=== PATIENT | female | born 1975 | race Caucasian/White ===

== ENCOUNTER 2016-08-11 10:13 | Day surgery (SDC) | payer OTHER ==
[2016-07-21 10:42] VITALS: BMI 36.0
--- NOTE | 2016-07-21 11:21 | PAT Medication Instructions ---
Service Date Jul 21, 2016. Current Home Medication List Albuterol (Ventolin Hfa), 2-3 PUFFS INH Q4HR PRN Cetirizine (Zyrtec), 10 MG PO DAILY PRN for ALLERGY Ibuprofen Tab (Motrin), 1,600 MG PO DAILY PRN for Pain Mometasone Furoate-Formoterol (Dulera 200/5 Mcg), 2 PUFF INH AMHS Tramadol (Ultram), 1-2 TAB PO Q4H PRN for Pain [Magnesium Joselo Zinc], 1-3 TAB PO PRN Medication Instructions For Your Scheduled Surgery Ibuprofen Tab (Motrin), 1,600 MG PO DAILY PRN for Pain (takes only occasionally) - Hold the following medications 2 weeks prior to surgery: Magnesium Joselo Zinc 1-3 TAB PO PRN - Hold the following medications the morning of surgery: Cetirizine (Zyrtec), 10 MG PO DAILY PRN for ALLERGY - Take the following medications the morning of surgery with a sip of water: Tramadol (Ultram), 1-2 TAB PO Q4H PRN for Pain (can take up to four hours prior to surgery if needed) Mometasone Furoate-Formoterol (Dulera 200/5 Mcg), 2 PUFF INH AMHS Albuterol (Ventolin Hfa), 2-3 PUFFS INH Q4HR PRN (bring with you to hospital on day of surgery) - Take the following medications as scheduled the night before surgery: Tramadol (Ultram), 1-2 TAB PO Q4H PRN for Pain (if needed) Mometasone Furoate-Formoterol (Dulera 200/5 Mcg), 2 PUFF INH AMHS Cetirizine (Zyrtec), 10 MG PO DAILY PRN for ALLERGY (if needed) Albuterol (Ventolin Hfa), 2-3 PUFFS INH Q4HR PRN (if needed) If you have any questions please call us at [phone] or [phone] ( Rachel) or [phone]
[2016-07-21 11:42] LABS: BASO % 0.5 %; BASO ABS # 0.03 K/uL (0-0.2); COMPLETE YES; EOS % 3.8 %; HEMATOCRIT 36.4 % (37-47); IG% 0.2 %; LYMPH % 23.6 %; LYMPH ABS # 1.29 K/uL (1.2-3.4); MEAN CELL VOLUME 90.5 fL (80-100); MEAN CORPUSCULAR HEMOGLOBIN 30.6 pg (25-34); MEAN CORPUSCULAR HGB CONC 33.8 g/dl (32-36); MEAN PLATELET VOLUME 10.5 fL (7.4-10.4); MONO % 5.5 %; NEUT % 66.4 %; PLATELET COUNT 235 K/uL (130-400); RED BLOOD COUNT 4.02 M/uL (4.2-5.4); WHITE BLOOD COUNT 5.46 K/uL (4.8-10.8)
[2016-07-21 12:01] LABS: CALCIUM 8.3 mg/dl (8.5-10.1); CREATININE 0.69 mg/dl (0.60-1.20); POTASSIUM 3.9 mmol/L (3.5-5.1)
[~2016-08-11] VITALS: Ht 170.2 cm; Wt 106.6 kg
[~2016-08-11 10:13] MED LIST: ACETAMINOPHEN 1000 MG/100 ML IV IV ONE; ALBUAER2 INH; CETI10TA84 PO; IBUP-1451 PO; LACTATED RINGER'S 1000ML 1,000 ML IV SCH; MOME200A INH; TRAM-10 PO; [UNRECOGNIZED DRUG - OTHER] PO
[2016-08-11 10:43] VITALS: BP 115/71; PULSE 71; TEMP 36.7; O2SAT 99; Ht 170.2 cm; Wt 106.6 kg
[2016-08-11] MEDS ORDERED: SUCCINYLCHOLINE CHLORIDE 20 MG/ML 10 ML VIAL IV ONE (10:55)
[2016-08-11] MEDS ORDERED: FENTANYL CITRATE INJ 50 MCG/1 ML 2 ML VIAL ONE ×2 (10:55→13:16)
[2016-08-11] MEDS ORDERED: PHENYLEPHRINE HCL INJ 10 MG/ML VIAL ONE (10:55)
[2016-08-11] MEDS ORDERED: LIDOCAINE HCL 2% 2 ML VIAL (20MG/ML) ONE (10:55)
[2016-08-11] MEDS ORDERED: MIDAZOLAM HCL 1 MG/ML 2ML VIAL ONE (10:55)
[2016-08-11] MEDS ORDERED: ONDANSETRON INJ 2 MG/ML 2 ML VIAL ONE ×2 (10:55)
[2016-08-11] MEDS ORDERED: DEXAMETHASONE SOD INJ 4 MG/ML VIAL ONE (10:55)
[2016-08-11] MEDS ORDERED: ROCURONIUM BROMIDE 10 MG/ML 5 ML VIAL ONE (10:55)
[2016-08-11] MEDS ORDERED: EpHEDrine SULFATE INJ 50 MG/ML AMP ONE (10:55)
[2016-08-11] MEDS ORDERED: GLYCOPYRROLATE INJ 0.2 MG/ML VIAL ONE (10:55)
[2016-08-11] MEDS ORDERED: NEOSTIGMINE METHYLSULFATE 5 MG/5 ML SYR ONE (10:55)
[2016-08-11] MEDS ORDERED: PROPOFOL IV EMULSION 10 MG/ML 20 ML VIAL IV ONE ×2 (10:55)
--- NOTE | 2016-08-11 12:09 | History & Physical Bridge Note ---
H&P Re-Evaluation Bridge Note: I have examined the patient, reviewed the History & Physical and in the interval since the performance of the History & Physical I have noted the following changes of clinical significance: No changes noted
[2016-08-11] MEDS ORDERED: BUPIVACAINE 0.5 % 5 MG/1 ML MPF 30ML VIAL ONE (12:17)
[2016-08-11] MEDS ORDERED: ONDANSETRON INJ 2 MG/ML 2 ML VIAL IV PRN ×2 (12:45→13:30)
[2016-08-11] MEDS ORDERED: PROMETHAZINE HCL INJ 6.25 MG in SODIUM CHLORIDE 0.9% 50ML 50 ML IV PRN (12:45)
[2016-08-11] MEDS ORDERED: HYDROmorphone INJ 1 MG/ML SYR IV PRN (12:45)
[2016-08-11] MEDS ORDERED: EpHEDrine SULFATE INJ 50 MG/ML AMP IV PRN (12:45)
[2016-08-11] MEDS ORDERED: ATROPINE SULFATE 0.1 MG/ML 5ML SYR IV PRN (12:45)
[2016-08-11] MEDS ORDERED: SODIUM CHLORIDE 0.9% 1000ML 1,000 ML IV SCH (13:29)
[2016-08-11] MEDS ORDERED: IBUPROFEN 600 MG TAB PO PRN (13:30)
[2016-08-11] MEDS ORDERED: KETOROLAC TROMETHAMINE 30 MG/ML VIAL IV. PRN (13:30)
[2016-08-11] MEDS ORDERED: PROMETHAZINE HCL INJ 25 MG in SODIUM CHLORIDE 0.9% 50ML 50 ML IV PRN (13:30)
--- NOTE | 2016-08-11 13:32 | [facility] Post Operative Brief Note ---
Immediate Operative Summary Operative Date Aug 11, 2016. Pre-Operative Diagnosis Pelvic pain, menorrhagia, wishes IUD Post-Operative Diagnosis same Procedure(s) Performed Insertion of Mirena IUD, laparoscopy Surgeon Carmenza Forming Yardage Control Operator Surgeon(s) Chirag Estimated Blood Loss minimal Findings Normal pelvis Specimens None Drains None Anesthesia General Complication(s) None Disposition Recovery Room / PACU
--- NOTE | 2016-08-11 13:34 | Discharge Instructions ---
Discharge Instructions Admission Reason for Admission: Dysmenorrhea, Endometriosis, Female Pelvic Pain Discharge Discharge Diagnosis / Problem: pelvic pain Discharge Goals Goal(s): Routine recovery after surgery Activity Recommendations Activity Limitations: per Instructions/Follow-up section . Instructions / Follow-Up Instructions / Follow-Up ACTIVITY RECOMMENDATIONS: * Rest the first 2-3 days. You should be back to your normal activity levels by day 3. * No heavy lifting for 2 weeks. * No intercourse, tampons or douching for 1-2 weeks. * You may shower the next day. * Do not drive anytime that you are taking narcotic pain medicines. RETURN TO SCHOOL/WORK: * May return to school or work after 2-3 days. DIET: Nausea may occur in the immediate post-operative period. If so, take clear liquids such as tea, bouillon, apple juice until all nausea has subsided, then resume usual diet. MEDICATIONS: Resume previous medications unless instructed otherwise by your surgeon. Ibuprofen 200mg 2-3 tablets every 4-6 hours as needed -- OR -- Aleve 2 tablets every 8-12 hours as needed for post-operative discomfort Medications are over the counter. Tylenol may be used if above medications are contraindicated or not preferred. Medication should be taken with food or milk. Do not take on an empty stomach. SPECIAL CARE INSTRUCTIONS: * Check temperature twice daily for one week. report any elevation over 101 degrees. * You may experience some vagina spotting and/or bleeding. This is normal for 1 -2 weeks and should not be heavier than a normal period. If it is unusual in amount, call your physician. * Post-operative discomfort may consist of a sore throat, a "bloated" feeling and pain in the shoulders. these are normal symptoms, which usually only last for 2-3 days. * Remove band-aids tomorrow and shower. There is no need to replace band-aids unless there is drainage or discomfort. FOLLOW UP VISIT: Call your doctor's office for a post-operative 2 week visit if not already scheduled. Current Hospital Diet Patient's current hospital diet: Discharge Diet Recommended Diet: Regular Diet Procedures Procedures Performed: Insertion of Mirena IUD, laparoscopy Pending Studies Studies pending at discharge: no Medical Emergencies . Who to Call and When: Medical Emergencies: If at any time you feel your situation is an emergency, please call 911 immediately. . Non-Emergent Contact Non-Emergency issues call your: Primary Care Provider . . "Provider Documentation" section prepared by Noel Herr. VTE Core Measure Inpt VTE Proph given/why not?: Keanu Phillips, SCD's
[2016-08-11] MEDS: FENTANYL CITRATE INJ 50 MCG/1 ML 2 ML VIAL IV PRN ×3 (13:45→14:00)
--- NOTE | 2016-08-11 14:29 | Anesthesiology Progress Note ---
Anesthesia Post Op Note Date & Time Aug 11, 2016 at 14:30 Vital Signs Pain Intensity: 2 Vital Signs Past 12 Hours Date Time Temp Pulse Resp B/P Pulse Ox O2 Delivery O2 Flow Rate FiO2 08/11/16 14:16 36.8 08/11/16 14:14 122/81 08/11/16 14:11 61 16 93 08/11/16 14:11 63 16 08/11/16 14:09 130/77 08/11/16 14:06 62 16 94 08/11/16 14:06 62 16 08/11/16 14:04 127/83 08/11/16 14:01 65 16 08/11/16 14:01 65 16 95 08/11/16 13:59 129/82 08/11/16 13:56 58 12 08/11/16 13:56 58 12 96 08/11/16 13:55 Nasal Cannula 3 08/11/16 13:54 136/86 08/11/16 13:51 59 13 94 08/11/16 13:51 59 13 08/11/16 13:49 140/96 08/11/16 13:46 65 18 08/11/16 13:46 64 18 97 08/11/16 13:44 149/102 08/11/16 13:41 80 20 156/98 98 08/11/16 13:41 78 08/11/16 13:36 36.2 78 16 156/98 98 Mask 10 08/11/16 10:43 36.7 71 20 115/71 99 Room Air Notes Mental Status: alert / awake / arousable, participated in evaluation Pt Amnestic to Procedure: Yes Nausea / Vomiting: adequately controlled Pain: adequately controlled Airway Patency, RR, SpO2: stable & adequate BP & HR: stable & adequate Hydration State: stable & adequate Anesthetic Complications: no major complications apparent
[2016-08-11 14:30] VITALS: BP 121/70; PULSE 60; TEMP 36.8; O2SAT 93
[2016-08-11 15:00] VITALS: BP 106/70; PULSE 63; TEMP 36.7; O2SAT 95
[2016-08-11] MEDS ORDERED: TRAM-453 PO (15:17)
[2016-08-11 15:25] VITALS: BP 102/66; PULSE 62; TEMP 36.7; O2SAT 95
[2016-08-11] MEDS ORDERED: TRAMADOL HCL 50 MG TAB PO PRN (15:30)
--- NOTE | 2016-08-12 08:53 | OPERATIVE REPORT ---
DATE OF OPERATION: 08/11/2016 PREOPERATIVE DIAGNOSIS: Pelvic pain, menorrhagia, wishes intrauterine device. POSTOPERATIVE DIAGNOSIS: Same. PROCEDURE: Insertion of Mirena IUD, laparoscopy. SURGEON: Dr. Herr. EMERGENCY DISPATCH OPERATOR: Dr. Beard. ESTIMATED BLOOD LOSS: Minimal. FINDINGS: Normal pelvis. SPECIMENS: None. DRAINS: None. ANESTHETIC: General. COMPLICATIONS: None. DISPOSITION: Recovery room. Kacie was given a general anesthetic, prepped and draped in dorsolithotomy position in [facility]. Bladder drained with a Strauss catheter. We grasped the cervix with an Allis clamp and sounded the uterus to 8 cm and Mirena IUD device was then inserted without difficulty and strings cut to 2 cm. At this stage, I then placed a cervical acorn overtop of this to allow manipulation of the uterus. Gloves changed and a subumbilical incision was made with open Razia technique cutting down through subcutaneous fat through the fascia in the midline, splitting the rectus muscles and entering the peritoneal cavity without difficulty. Blunt-tipped Razia trocar then placed. Balloon inflated into the tip and then CO2 gas to insufflate the abdomen. FINDINGS: Upper abdomen normal, no sign of visceral organ injury. After deep Trendelenburg position, we placed one 8 mm port on the left side to allow probe, and anatomy was completely normal. Specifically, the uterus appeared normal. The adnexa appeared normal. The pelvic sidewalls appeared normal. The uterosacrals appeared normal. The cul-de-sac appeared normal. The anterior bladder flap appeared normal. The appendix appeared normal. There was no evidence of scarring, endometriosis or any other PARENT EDUCATOR pathologies. Pictures were taken for documentation. At this stage, we then removed the camera and the probe and gas was allowed to escape. Ports were removed. All injected with 0.5% Marcaine. Fascia closed with 0 Vicryl [id number] sutures, deep subcutaneous fat closed as well with 0 Vicryl. Skin closed with 4-0 subcuticular Monocryl on both incisions and Dermabond. Instruments removed from the cervix and vagina. IUD obviously was left in proper position. At the end of procedure sponge and instrument counts correct. I attest to the content of the Intraoperative Record and any orders documented therein. Any exceptio ns are noted below.
== END 2016-08-11 15:30 | disposition home or self-care (01) ==
LOC: C.ACU 10:13
PROVIDERS: ATTEND Obstetrics & Gynecology
DX: Z30.430 Encounter for insertion of intrauterine contraceptive device (principal); N94.6 Dysmenorrhea, unspecified; N80.9 Endometriosis, unspecified; N92.6 Irregular menstruation, unspecified; M25.50 Pain in unspecified joint; D86.9 Sarcoidosis, unspecified; F17.210 Nicotine dependence, cigarettes, uncomplicated

== ENCOUNTER → 2016-10-09 | Outpatient (CLI) | payer OTHER ==
[~2016-10-09] MED LIST changes: -ACETAMINOPHEN 1000 MG/100 ML IV IV ONE; +DOXY100C2 PO; -LACTATED RINGER'S 1000ML 1,000 ML IV SCH; +PRED50TA PO; +VNTHFA/IN INH
--- NOTE | 2016-10-09 13:19 | DIAGNOSTIC IMAGING REPORT ---
CHEST 2 VIEWS ROUTINE CLINICAL HISTORY: Night sweats. Sarcoidosis. Asthma. COMPARISON STUDY: Chest radiograph September 18, 2014. FINDINGS: Lung volumes are normal. There is no pneumothorax or pleural effusion. There is no consolidation to suggest pneumonia. Cardiomediastinal silhouette is normal. There is no evidence of pulmonary edema. IMPRESSION: No acute cardiopulmonary findings. Electronically signed by: Jamar Khalil M.D. 10/09/2016 1:18 PM Dictated Date/Time: 10/09/2016 1:17 PM
== END | disposition home or self-care (01) ==
LOC: C.RAD1850 12:23
PROVIDERS: ATTEND Internal Medicine Pulmonary Disease
DX: J45.909 Unspecified asthma, uncomplicated (principal); R61 Generalized hyperhidrosis; D86.9 Sarcoidosis, unspecified

== ENCOUNTER 2017-02-28 21:13 | Emergency (ER) | payer OTHER ==
[~2017-02-28] VITALS: Ht 170.2 cm; Wt 101.3 kg
[~2017-02-28 21:13] MED LIST changes: -DOXY100C2 PO; -PRED50TA PO; -TRAM-10 PO; -VNTHFA/IN INH
[2017-02-28 21:20] VITALS: TEMP 36.6; Ht 170.2 cm; Wt 101.3 kg
[2017-02-28] MEDS ORDERED: VNTHFA/IN INH (21:40)
[2017-02-28] MEDS ORDERED: ONDANSETRON INJ 2 MG/ML 2 ML VIAL IV STA (21:41)
[2017-02-28] MEDS ORDERED: DEXAMETHASONE SOD INJ 10 MG/ML VIAL IV ONE (21:45)
[2017-02-28] MEDS ORDERED: ALBUT/IPRATROP 3MG/0.5MG NEB 3 ML VIAL INH ONE (21:45)
[2017-02-28 21:57] VITALS: O2SAT 96
[2017-02-28 22:00] LABS: BASO % 0.4 %; BASO ABS # 0.03 K/uL (0-0.2); COMPLETE YES; EOS % 4.1 %; HEMATOCRIT 40.6 % (37-47); IG% 0.3 %; LYMPH % 24.6 %; LYMPH ABS # 1.78 K/uL (1.2-3.4); MEAN CELL VOLUME 92.1 fL (80-100); MEAN CORPUSCULAR HEMOGLOBIN 30.8 pg (25-34); MEAN CORPUSCULAR HGB CONC 33.5 g/dl (32-36); MEAN PLATELET VOLUME 10.3 fL (7.4-10.4); NEUT % 62.6 %; PLATELET COUNT 291 K/uL (130-400); RED BLOOD COUNT 4.41 M/uL (4.2-5.4); WHITE BLOOD COUNT 7.25 K/uL (4.8-10.8)
[2017-02-28 22:03] VITALS: PULSE 66; O2SAT 97
[2017-02-28 22:17] LABS: BUN/CREATININE RATIO 13.1 (10-20); CALCIUM 9.2 mg/dl (8.5-10.1); CREATININE 0.64 mg/dl (0.60-1.20); POTASSIUM 3.6 mmol/L (3.5-5.1)
[2017-02-28] MEDS ORDERED: AZITHROMYCIN 250 MG TAB PO STA (23:37)
--- NOTE | 2017-02-28 23:38 | EMERGENCY ROOM VISIT NOTE ---
History First contact with patient: 21:27 Chief Complaint: RESPIRATORY PROBLEMS Stated Complaint: BREATHING Nursing Triage Summary: thursday with sore throat and thursday with breathing and cough went to PCP and was told it was viral. breathing and coughing worse. cough and chest tightness History of Present Illness The patient is a 41 year old female who presents to the Emergency Room with complaints of cough, congestion, wheezing with fever and chills for the past several days. Patient has sarcoidosis. No recent steroids. Patient went to the family care doctor and was told it was a cold. No chest x-ray. Patient denies chest pain, abdominal pain, neck stiffness, headache, leg pain or swelling. Review of Systems See HPI for pertinent positives & negatives. A total of 10 systems reviewed and were otherwise negative. Past Medical/Surgical History Medical Problems: (1) Acute Bronchitis (2) Anxiety State Nos (3) Bronchitis (4) Depressive Disorder Nec (5) Other Diseases Of Lung, Nec (6) Personal History, Pneumonia (Recurrent) (7) Respiratory Abnorm Nec (8) Sarcoid (9) Shortness Of Breath Family History Cancer Diabetes mellitus Heart disease Hypertension Lung disease Social History Smoking Status: Current Every Day Smoker Alcohol Use: occasionally Marital Status: Housing Status: lives with family Occupation Status: unemployed Current/Historical Medications Scheduled Mometasone Furoate-Formoterol (Dulera 200/5 Mcg), 2 PUFF INH AMHS Scheduled PRN Albuterol Hfa (Ventolin Hfa), 2-3 PUFFS INH Q4H PRN for SOB/Wheezing Ibuprofen Tab (Motrin), 1,600 MG PO DAILY PRN for Pain Physical Exam Vital Signs Date Time Temp Pulse Resp B/P (MAP) Pulse Ox O2 Delivery O2 Flow Rate FiO2 02/28/17 23:16 78 20 148/93 99 Room Air 02/28/17 22:13 96 Room Air 02/28/17 22:12 59 20 146/100 100 Room Air 02/28/17 22:03 66 20 97 Room Air 02/28/17 21:57 96 Room Air 02/28/17 21:20 36.6 77 20 136/88 93 Room Air Physical Exam PHYSICAL EXAM: Vital Signs: Reviewed Nurse's notes. Oxygen saturation was 93% on room air. GENERAL: Pleasant female, Alert, oriented and coherent. The patient is able to speak in complete sentences. NECK: Supple, non-tender. CHEST : Symmetrical expansion. no retractions no accessory muscle use. HEART: Regular rate and normal heart sounds, no murmur, gallop or rub. LUNGS: Breath sounds equal but significantly diminished in intensity on both sides. Bilateral wheezes heard but no rales or pleuritic rub. SKIN: The skin was without rashes, erythema, edema, or bruising. There is no tenting of the skin. Capillary reflex less than 2 seconds. HEAD: Normocephalic atraumatic. EARS: External auditory canals clear, tympanic membranes pearly villalobos without erythema or effusion bilaterally. EYES: Pupils equal round and reactive to light and accommodation. Conjunctivae without injection, sclerae without icterus. Extraocular movements intact. NOSE: Patent, turbinates without inflammation or discharge. No sinus tenderness. MOUTH: Mucous membranes moist. Pharynx without erythema or exudate. Uvula midline. Airway patent. Tongue does not deviate. ABDOMEN: Positive bowel sounds x 4. Normal tympanic percussion. Soft, nontender, without masses or organomegaly. He sign negative. No guarding or rebound tenderness. MUSCULOSKELETAL: No muscle atrophy, erythema, or edema noted. NEURO: Patient was alert and oriented to person place and time. Normal sensation to light and sharp touch. No focal neurological deficits. Medical Decision & Procedures Laboratory Results 02/28/17 21:50 Red Blood Count 4.41, Mean Corpuscular Volume 92.1, Mean Corpuscular Hemoglobin 30.8, Mean Corpuscular Hemoglobin Concent 33.5, Mean Platelet Volume 10.3, Neutrophils (%) (Auto) 62.6, Lymphocytes (%) (Auto) 24.6, Monocytes (%) (Auto) 8.0, Eosinophils (%) (Auto) 4.1, Basophils (%) (Auto) 0.4, Neutrophils # (Auto) 4.54, Lymphocytes # (Auto) 1.78, Monocytes # (Auto) 0.58, Eosinophils # (Auto) 0.30, Basophils # (Auto) 0.03 02/28/17 21:50 Test 02/28/17 21:50 White Blood Count 7.25 K/uL (4.8-10.8) Red Blood Count 4.41 M/uL (4.2-5.4) Hemoglobin 13.6 g/dL (12.0-16.0) Hematocrit 40.6 % (37-47) Mean Corpuscular Volume 92.1 fL (80-100) Mean Corpuscular Hemoglobin 30.8 pg (25-34) Mean Corpuscular Hemoglobin Concent 33.5 g/dl (32-36) Platelet Count 291 K/uL (130-400) Mean Platelet Volume 10.3 fL (7.4-10.4) Neutrophils (%) (Auto) 62.6 % Lymphocytes (%) (Auto) 24.6 % Monocytes (%) (Auto) 8.0 % Eosinophils (%) (Auto) 4.1 % Basophils (%) (Auto) 0.4 % Neutrophils # (Auto) 4.54 K/uL (1.4-6.5) Lymphocytes # (Auto) 1.78 K/uL (1.2-3.4) Monocytes # (Auto) 0.58 K/uL (0.11-0.59) Eosinophils # (Auto) 0.30 K/uL (0-0.5) Basophils # (Auto) 0.03 K/uL (0-0.2) RDW Standard Deviation 40.9 fL (36.4-46.3) RDW Coefficient of Variation 12.1 % (11.5-14.5) Immature Granulocyte % (Auto) 0.3 % Immature Granulocyte # (Auto) 0.02 K/uL (0.00-0.02) Anion Gap 6.0 mmol/L (3-11) Est Creatinine Clear Calc Drug Dose 144.4 ml/min Estimated GFR () 130.3 Estimated GFR (Non- 112.4 BUN/Creatinine Ratio 13.1 (10-20) Calcium Level 9.2 mg/dl (8.5-10.1) Medications Administered Medications (Trade) Dose Ordered Sig/Waldemar Route Start Time Stop Time Status Last Admin Dose Admin Albuterol/ Ipratropium (Duoneb) 12 ml ONE ONCE INH 02/28/17 21:45 02/28/17 21:46 DC 02/28/17 22:00 12 ML Dexamethasone Sodium Phosphate (Decadron Inj) 10 mg NOW ONCE IV 02/28/17 21:45 02/28/17 21:46 DC 02/28/17 22:05 10 MG Ondansetron HCl (Zofran Inj) 4 mg NOW STAT IV 02/28/17 21:41 02/28/17 21:42 DC 02/28/17 22:05 4 MG ED Course Prior records/ancillary studies reviewed. Triage Nursing notes reviewed. The patient's history was concerning for respiratory difficulties. Differential diagnosis: Etiologies such as sarcoid exacerbation, infections, reactive airway disease, pneumonia, pneumothorax, COPD, CHF, cardiac ischemia, pulmonary embolism, musculoskeletal, gastrointestinal, as well as others were entertained. Physical examination: As above. ER treatment provided: Nebulizer, steroids On reassessment the patient felt better. Diagnostic interpretation by me: The labs revealed no leukocytosis. No worrisome or joint abnormality Imaging studies: Chest x-ray developing right lower lobe pneumonia per my interpretation This appears to be consistent with PNA with wheezing most likely from her sarcoid, from a viral infection. Patient was neurovascularly and neurologically intact. She felt much better after being medicated as above. She is advised to take medications as directed and to follow-up family care in a few days or here in the ER sooner for chest pain, difficulty breathing, high fevers, worsening signs or symptoms or as needed. By the evaluation outlined above emergent etiologies such as CHF, cardiac ischemia, pulmonary embolism, pneumothorax, musculoskeletal, serious bacterial infections, as well as others were deemed relatively unlikely. The pt informed about the findings as listed above. All questions were answered and pleased with the treatment. Return instructions were outlined and the patient was discharged in stable condition. Outpatient prescription management: Prednisone, doxy Referral: The patient was referred back to their primary care physician for follow-up in 2 to 3 days for a recheck of the current condition. Case reviewed with my attending Medical Decision As above Medication Reconcilliation Current Medication List: was personally reviewed by me Blood Pressure Screening Patient's blood pressure: Normal blood pressure Impression Primary Impression: Pneumonia involving right lung Departure Information Dispostion Home / Self-Care Condition GOOD Referrals Yasmine Camejo D.O. (PCP) Patient Instructions My [facility] Additional Instructions Albuterol Inhaler: Take 2 puffs four times daily for five days, then as needed. Prednisone 50mg: Once daily until the prescription is finished. It is best to take this earlier in the day as some patients note occasional difficulty falling asleep when taken in the late evening. Doxycycline 100mg: Take one pill twice daily for seven days for your infection. Take with food, but avoid dairy. Avoid prolonged sun exposure since this medication makes you temporarily more susceptible to sunburns. All antibiotics can cause diarrhea. If this occurs and you feel worse or it does not resolve in 1-2 days follow up with your doctor or return to the Emergency Department as this could be signs of serious underlying problems. Any medication can cause an allergic reaction, stop the pills immediately and return to the ER for rash, hives, breathing difficulties, or swelling. Acetaminophen(Tylenol) may be used for fever or pain. Use 1000mg every six hours as needed. Avoid using more than 3000mg in a 24 hour period. (AND/OR) Ibuprofen(Motrin, Advil) may be used for fever or pain. Use 600mg every six hours as needed. Take with food. Avoid using more than 2400mg in a 24 hour period. Do not use 2400mg per day for more than three consecutive days without physician direction. Prolonged inappropriate use can lead to stomach upset or ulcers. Rest and drink plenty of fluids. Avoid smoke/smoking, fumes, dust, or any triggers in the past that may have affected your breathing. Continue current medications. Return to the ER for chest pain, difficulty breathing, fevers, vomiting, worsening of your condition, or as needed. Follow up with your primary physician this week for a recheck of your current condition. Problem Qualifiers Primary Impression: Pneumonia involving right lung Pneumonia type: due to unspecified organism Lung location: lower lobe of lung Qualified Codes: J18.1 - Lobar pneumonia, unspecified organism
[2017-02-28] MEDS ORDERED: PRED50TA PO (23:44)
[2017-02-28] MEDS ORDERED: DOXY100C2 PO (23:44)
[2017-02-28] MEDS ORDERED: DOXYCYCLINE HYCLATE 100 MG CAP PO ONE (23:45)
[2017-03-01 00:07] VITALS: BP 135/78; PULSE 85; O2SAT 94
--- NOTE | 2017-03-01 05:45 | DIAGNOSTIC IMAGING REPORT ---
CHEST 2 VIEWS ROUTINE CLINICAL HISTORY: 41 years-old Female presenting with cough/fever. TECHNIQUE: PA and lateral views of the chest were obtained. COMPARISON: 10/09/2016. FINDINGS: Cardiomediastinal silhouette normal. Lungs and pleural spaces clear. Osseous structures normal. Upper abdomen normal. IMPRESSION: 1. No acute cardiopulmonary disease. Electronically signed by: Murphy Holland M.D. 03/01/2017 5:44 AM Dictated Date/Time: 03/01/2017 5:43 AM
== END 2017-03-01 00:08 | disposition home or self-care (01) ==
LOC: C.EDB 21:14
DX: J18.1 Lobar pneumonia, unspecified organism (principal); F41.9 Anxiety disorder, unspecified; F32.9 Major depressive disorder, single episode, unspecified; Z83.3 Family history of diabetes mellitus; Z82.49 Family history of ischemic heart disease and other diseases of the circulatory system; F17.200 Nicotine dependence, unspecified, uncomplicated

== ENCOUNTER 2018-07-08 05:48 | Observation (INO) ==
--- NOTE | 2018-07-06 15:10 | Anesthesiology Consultation ---
Date of Service July 06, 2018 Assessment & Plan Chart Review Chart Review: Acceptable Risk for Surgery and Patient NOT seen in Pre Admission Testing Consults Requested none ASA ASA3 Proposed Anesthesia Anesthesia Type: General History Surgery Operation Date: 07/08/18 07:45 Proposed Procedures p C6-C7 Anterior Cervical Discectomy and Fusion - Cyrus Reyes DO Allergies Allergy/AdvReac Type Severity Reaction Status Date / Time mold Allergy Severe SHORTNESS Verified 02/28/17 21:38 OF BREATH Medications Home Medications Medication Instructions Recorded Confirmed Last Taken Ibuprofen Tab (MOTRIN) 1,600 mg PO DAILY PRN #0 tab 04/04/14 Unknown MOMETASONE FUROATE-FORMOTEROL 2 puff INHALATION AMHS #0 04/04/14 Unknown (DULERA 200/5 MCG) ALBUTEROL HFA (VENTOLIN HFA) 2 - 3 puff INHALATION Q4H PRN #1 02/28/17 Unknown inhaler DOXYCYCLINE HYCLATE (VIBRAMYCIN) 100 mg PO BID 7 Days #14 cap 02/28/17 Unknown Past Medical History Medical History Anemia Anxiety Asthma Hyperlipidemia Obesity Sarcoid Tobacco abuse Past Anesthesia History No Hx of Anesthesia Complications and No Family Hx of Anesthesia Complications Motion Sickness Screening History of Motion Sickness: No Social History Smoking Status: Current every day smoker Exercise / Class Metabolic Activity III < 4 Walking/Shop/Light housework Testing Electrocardiogram Date: 07/02/18 Findings: + pertinent finding (SR w/ frequent PVC's;at 65)
[2018-07-08] MEDS ORDERED: CEFAZOLIN 2000MG 2,000 MG/15 ML SYR IV SCH (06:00)
[2018-07-08] MEDS ORDERED: LR 15ML/HR IV SCH (06:00)
[2018-07-08] MEDS ORDERED: ACETAMINOPHEN 500 MG TAB PO SCH (06:00)
[2018-07-08] MEDS ORDERED: GABAPENTIN 300 MG x 3 PO SCH (06:00)
[2018-07-08] MEDS ORDERED: CeleBREX 200 MG CAP PO SCH (06:00)
[2018-07-08] MEDS ORDERED: ONDANSETRON INJ 2 MG/ML 2 ML VIAL ONE ×2 (06:36→08:52)
[2018-07-08] MEDS ORDERED: ROCURONIUM BROMIDE 10 MG/ML 5 ML VIAL ONE (06:36)
[2018-07-08] MEDS ORDERED: MIDAZOLAM HCL 1 MG/ML 2ML VIAL ONE (06:36)
[2018-07-08] MEDS ORDERED: LIDOCAINE HCL 2% 2 ML VIAL/AMP(20MG/ML) INFIL ONE (06:36)
[2018-07-08] MEDS ORDERED: GLYCOPYRROLATE 0.2 MG/ML VIAL ONE (06:36)
[2018-07-08] MEDS ORDERED: NEOSTIGMINE METHYLSULFATE 1 MG/ML 10ML VIAL ONE (06:36)
[2018-07-08] MEDS ORDERED: DEXAMETHASONE SOD INJ 4 MG/ML VIAL ONE ×3 (06:36→08:14)
[2018-07-08] MEDS ORDERED: fentaNYL citrate 100 MCG/2 ML VIAL ONE (06:36)
[2018-07-08] MEDS ORDERED: PROPOFOL IV EMULSION 10 MG/ML 20 ML VIAL IV ONE (06:36)
[2018-07-08] MEDS ORDERED: HYDROmorphone INJ 2 MG/ML SYR/VIAL ONE (06:37)
[2018-07-08] MEDS ORDERED: ACETAMINOPHEN 1000 MG/100 ML IV IV ONE (06:41)
[2018-07-08] MEDS ORDERED: BACITRACIN INJ 50,000 UNIT VIAL ONE (06:58)
[2018-07-08] MEDS ORDERED: ePHEDrine sulfate 50 MG/ML AMP IV PRN (07:41)
[2018-07-08] MEDS ORDERED: ATROPINE SULFATE 0.1 MG/ML 10ML SYR IV PRN (07:41)
--- NOTE | 2018-07-08 07:41 | History & Physical Bridge Note ---
Date of Service July 08, 2018 History & Physical Bridge Note I have examined the patient, reviewed the History & Physical and in the interval since the performance of the History & Physical I have noted the following changes of clinical significance: no changes noted
--- NOTE | 2018-07-08 07:42 | History & Physical Report ---
Date of Service July 08, 2018 Assessment & Plan (1) Cervical stenosis of spinal canal: Anterior cervical discectomy and fusion C6-7 Present on Admission?: Yes History of Present Illness Chief Complaint: Neck and arm pain Primary Care Provider: Yasmine Camejo DO This is a 42-year-old female presents with chronic persistent neck and arm pain. After failing extensive course of nonoperative care she is here for surgical intervention. Allergies Allergy/AdvReac Type Severity Reaction Status Date / Time mold Allergy Severe SHORTNESS Verified 07/08/18 06:17 OF BREATH No Known Drug Allergies AdvReac Verified 07/08/18 06:17 Home Medications Home Medications Medication Instructions Recorded Confirmed Type albuterol sulfate 2 - 3 puff INHALATION Q6H PRN 07/06/18 07/08/18 History folic acid 1 mg PO DAILY 07/06/18 07/08/18 History ibuprofen 800 mg PO BID PRN 07/06/18 07/08/18 History multivitamin [Multiple Vitamins] 1 tab PO DAILY 07/06/18 07/08/18 History Past Med/Surg History Social History Current Living Situation: Family Other Information That Helps Us Care for You: No Feels Safe at Home: Yes Safety Concerns: Feels Safe At This Time Smoking Status: Current every day smoker Tobacco Type: cigarettes Cigarettes per Day: 10 CIGS/DAILY X 20 YEARS Do You Dip or Chew Tobacco: No Tobacco Cessation Education Requested by Patient: No Hx Alcohol Use: Yes Alcohol type: beer and hard liquor Alcohol Intake Frequency : a few times a week Hx Substance Use: No Beliefs That Will Affect Care: None Preferred Language: Maori Communication Ability: Effective Plywood Patcher Required: No Physical Exam 2 Vital Signs (Past 24 Hours): Last Vital Signs Temp 36.7 C 07/08/18 06:24 Pulse 67 07/08/18 06:24 Resp 20 07/08/18 06:24 BP 134/68 07/08/18 06:24 Pulse Ox 98 07/08/18 06:24 Results & Data Medications Administered Acetaminophen (Tylenol) 1,000 mg PO PREOP JIGNA Stop: 07/08/18 18:00 Last Admin: 07/08/18 06:43 Dose: 1,000 mg Celecoxib (Celebrex) 200 mg PO PREOP JIGNA Stop: 07/08/18 18:00 Last Admin: 07/08/18 06:44 Dose: 200 mg Gabapentin (Neurontin) 900 mg PO PREOP JIGNA Stop: 07/08/18 18:00 Last Admin: 07/08/18 06:44 Dose: 900 mg Lactated Ringer's (Lr) 1,000 mls @ 15 mls/hr IV .Q24H [facility] Stop: 07/09/18 05:59 Last Admin: 07/08/18 06:26 Dose: 15 mls/hr
[2018-07-08] MEDS ORDERED: KETAMINE HCL INJ 50 MG/ML 10 ML VIAL ONE (07:56)
[2018-07-08] MEDS ORDERED: FLOSEAL HEMOSTATIC MATRIX 10ML TOP ONE (08:21)
--- NOTE | 2018-07-08 09:03 | Operative Report ---
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 #2 anterior cervical arthrodesis C6-7. #3 placement of cornerstone cortical allograft filled with DBM 7 mm in height at C6-7. #4 application stewart plate and screws across C6-7. Surgeon Cyrus Reyes DO [employer] None Estimated Blood Loss 50 Findings Consistent with Post-Op Diagnosis Specimens None Description of Procedure Patient was met with preoperatively case discussed all questions addressed. After informed consent obtained patient was taken to the operative suite underwent intubation and placed in supine position Myles table with the head in the [place] head counselor. All bony prominences well-padded eyes inspected to ensure no external pressure placed upon but this point the anterior cervical spine was prepped and draped in normal sterile fashion. The assistance of fluoroscopy identified the C6-7 disc space and a transverse incision was placed on the right anterior aspect of the cervical spine overlying this region. Sharp dissection with the assistance of bipolar elective cautery was performed down to and exposing the anterior cervical spine at C6-7. I verified my position with fluoroscopy. Self-retaining retractor placed. A complete discectomy was then performed out to the uncovertebral joints bilaterally. [place] distracting pins utilized. Removed all disc material posterior annular fibers and longitudinal ligament to remove all disc fragments in the canal. After complete decompression and bilateral foraminotomies in place burred to subcortical bleeding bone and a 7 mm cortical allograft filled with DBM tamped in position. Distraction apparatus was removed and a stewart plate and screws applied with the assistance of fluoroscopy. Incision was then copious irrigated explored to ensure no damage to surrounding structures remaining bleeding. 10 round MAIRA drain inserted. Incision was then closed with 2 Vicryl in a fashion of 4 Monocryl for final skin closure Steri-Strip sterile dressings placed. Patient will continue to PACU in a stable condition. I attest to the content of the Intraoperative Record and any orders documented therein. Any exceptions are noted below.
[2018-07-08] MEDS: HYDROmorphone INJ 2 MG/ML SYR/VIAL IV PRN ×4 (09:15→09:30)
--- NOTE | 2018-07-08 09:25 | Fluoroscopy Report ---
FL cervical 2-3V CLINICAL HISTORY: ACDF C6-7 COMPARISON STUDY: MRI dated 05/21/2018 FLUOROSCOPY TIME: 18.1 seconds. NUMBER OF FLUOROSCOPIC IMAGES: 3 FINDINGS: 3 intraoperative fluoroscopic spot images reveal postsurgical changes of anterior cervical discectomy and fusion at the C6-7 level. IMPRESSION: Postsurgical changes of anterior cervical discectomy and fusion at the C6-7 level. Electronically signed by: Livan Cuellar M.D. 07/08/2018 9:23 AM
[2018-07-08] MEDS ORDERED: HYDROmorphone INJ 1 MG/ML SYRINGE ONE (09:30)
[2018-07-08] MEDS: HYDROmorphone INJ 0.5 MG/0.5 ML SYR IV PRN ×2 (09:35→09:40)
[2018-07-08] MEDS ORDERED: DO NOT ADMINISTER PNEUMOCOCCAL VACCINE PRN (10:49)
[2018-07-08] MEDS ORDERED: ONDANSETRON INJ 2 MG/ML 2 ML VIAL IV PRN (10:49)
[2018-07-08] MEDS ORDERED: DO NOT ADMINISTER FLU VACCINE PRN (10:49)
[2018-07-08] MEDS ORDERED: RACEPINEPHRINE 2.25% NEBU SOLN 0.5 ML VIAL INH PRN (10:49)
[2018-07-08] MEDS ORDERED: IBUPROFEN 800 MG TAB PO PRN (10:49)
[2018-07-08] MEDS ORDERED: DiphenhydrAMINE HCL 50 MG/ML VIAL IV PRN (10:49)
[2018-07-08] MEDS ORDERED: ACETAMINOPHEN 1,000 MG/100 ML VIAL IV PRN (10:49)
[2018-07-08] MEDS ORDERED: LORazepam 0.5 MG TAB PO PRN (10:49)
[2018-07-08] MEDS ORDERED: MAGNESIUM HYDROXIDE SUSP 30 ML UDC PO PRN (10:49)
[2018-07-08] MEDS ORDERED: LORazepam 0.5 MG/1 ML VIAL IV PRN (10:49)
[2018-07-08] MEDS ORDERED: DEXAMETHASONE SOD PHOSPHATE 8 MG in SYRINGE 0 ML IV PRN (10:49)
[2018-07-08] MEDS ORDERED: HYDROmorphone INJ 0.5 MG/0.5 ML SYR IV PRN (10:49)
[2018-07-08] MEDS ORDERED: NALOXONE HCL 0.4 MG/1 ML VIAL/CARP IV PRN (10:49)
[2018-07-08] MEDS: LACTATED RINGER'S 1,000 ML IV SCH ×2 (11:23→23:13)
[2018-07-08] MEDS ORDERED: SCOPOLAMINE 1.5 MG TDSY TD SCH (11:30)
[2018-07-08] MEDS: OXYCODONE HCL IR 5 MG TAB (IMMEDIATE RELEASE) PO PRN ×3 (12:23→21:48)
--- NOTE | 2018-07-08 15:16 | Anesthesiology Progress Note ---
Date of Service July 08, 2018 Anesthesia Post Procedure Vital Signs Vital Signs: Temp Pulse Pulse Pulse Resp BP Pulse Ox 07/08/18 13:46 36.3 C L 67 15 106/70 99 07/08/18 12:53 59 L 16 109/73 92 07/08/18 11:46 36.4 C L 54 L 18 107/71 94 07/08/18 11:35 65 16 100 07/08/18 11:15 36.5 C 56 L 17 105/64 99 07/08/18 10:49 36.6 C 56 L 17 116/75 100 07/08/18 10:20 52 L 12 100/61 94 07/08/18 10:10 56 L 18 101/51 L 98 07/08/18 10:00 51 L 18 104/61 99 07/08/18 09:50 36.1 C L 51 L 18 108/65 98 07/08/18 09:40 51 L 18 120/66 98 07/08/18 09:30 54 L 18 130/88 100 07/08/18 09:20 67 18 125/85 99 07/08/18 09:14 36.2 C L 81 18 135/73 97 07/08/18 06:24 36.7 C 67 20 134/68 98 Pulse Ox 07/08/18 13:46 07/08/18 12:53 07/08/18 11:46 07/08/18 11:35 07/08/18 11:15 07/08/18 10:49 100 07/08/18 10:20 07/08/18 10:10 07/08/18 10:00 07/08/18 09:50 07/08/18 09:40 07/08/18 09:30 07/08/18 09:20 07/08/18 09:14 07/08/18 06:24 Pain Intensity Bilateral Shoulder: Pain Intensity: 3 Notes Mental Status: alert / awake / arousable Patient Amnestic to Procedure: Yes Nausea / Vomiting: adequately controlled Pain: adequately controlled Airway Patency, RR, SpO2: stable & adequate BP & HR: stable & adequate Hydration State: stable & adequate Anesthetic Complications: no major complications apparent and Pt Satisfied with anesthetic care
[2018-07-08] MEDS: CHECK SCOPOLAMINE PATCH PLACEMENT SCH ×2 (16:05→23:45)
[2018-07-08] MEDS: CEFAZOLIN 2000MG 2,000 MG/15 ML SYR IV SCH ×2 (16:36→23:13)
[2018-07-08] MEDS: DOCUSATE SODIUM 100 MG CAP PO SCH (21:49)
[2018-07-09] MEDS: OXYCODONE HCL IR 5 MG TAB (IMMEDIATE RELEASE) PO PRN ×2 (02:48→07:55)
[2018-07-09] MEDS ORDERED: Nursing to Pharmacy Communication ONE (05:51)
[2018-07-09] MEDS: CHECK SCOPOLAMINE PATCH PLACEMENT SCH (07:48)
[2018-07-09] MEDS: CEFAZOLIN 2000MG 2,000 MG/15 ML SYR IV SCH (07:55)
--- NOTE | 2018-07-09 08:26 | Anesthesiology Progress Note ---
Date of Service July 09, 2018 Anesthesia Post Procedure Vital Signs Vital Signs: Temp Pulse Pulse Pulse Resp BP Pulse Ox 07/09/18 07:44 36.5 C 56 L 16 98/66 L 98 07/09/18 07:27 58 L 14 97 07/09/18 05:50 36.2 C L 58 L 16 104/67 07/09/18 03:50 36.7 C 60 16 105/68 99 07/09/18 03:25 51 L 16 99 07/09/18 01:55 36.7 C 58 L 14 104/69 98 07/08/18 23:47 36.7 C 57 L 14 108/69 99 07/08/18 23:32 54 L 16 100 07/08/18 21:50 36.5 C 63 16 113/71 98 07/08/18 17:50 36.4 C L 80 18 103/73 97 07/08/18 15:50 36.5 C 72 18 108/66 98 07/08/18 15:12 68 20 99 07/08/18 13:46 36.3 C L 67 15 106/70 99 07/08/18 12:53 59 L 16 109/73 92 07/08/18 11:46 36.4 C L 54 L 18 107/71 94 07/08/18 11:35 65 16 100 07/08/18 11:15 36.5 C 56 L 17 105/64 99 07/08/18 10:49 36.6 C 56 L 17 116/75 100 07/08/18 10:20 52 L 12 100/61 94 07/08/18 10:10 56 L 18 101/51 L 98 07/08/18 10:00 51 L 18 104/61 99 07/08/18 09:50 36.1 C L 51 L 18 108/65 98 07/08/18 09:40 51 L 18 120/66 98 07/08/18 09:30 54 L 18 130/88 100 07/08/18 09:20 67 18 125/85 99 07/08/18 09:14 36.2 C L 81 18 135/73 97 Pulse Ox 07/09/18 07:44 07/09/18 07:27 07/09/18 05:50 07/09/18 03:50 07/09/18 03:25 07/09/18 01:55 07/08/18 23:47 07/08/18 23:32 07/08/18 21:50 07/08/18 17:50 07/08/18 15:50 07/08/18 15:12 07/08/18 13:46 07/08/18 12:53 07/08/18 11:46 07/08/18 11:35 07/08/18 11:15 07/08/18 10:49 100 07/08/18 10:20 07/08/18 10:10 07/08/18 10:00 07/08/18 09:50 07/08/18 09:40 07/08/18 09:30 07/08/18 09:20 07/08/18 09:14 Pain Intensity Bilateral Shoulder: Pain Intensity: 3 Neck: Pain Intensity: 7 Notes Mental Status: alert / awake / arousable and participated in evaluation Patient Amnestic to Procedure: Yes Nausea / Vomiting: adequately controlled Pain: adequately controlled Airway Patency, RR, SpO2: stable & adequate BP & HR: stable & adequate Hydration State: stable & adequate Anesthetic Complications: no major complications apparent and Pt Satisfied with anesthetic care
[2018-07-09] MEDS: DOCUSATE SODIUM 100 MG CAP PO SCH (08:55)
[2018-07-09] MEDS ORDERED: FOLIC ACID 1 MG TAB PO SCH (09:00)
[2018-07-09] MEDS ORDERED: MULTIVITAMIN TAB PO SCH (09:00)
--- NOTE | 2018-07-09 13:54 | Discharge Summary ---
Date of Service July 09, 2018 Admission HPI Per Admitting Provider This is a 42-year-old female presents with chronic persistent neck and arm pain. After failing extensive course of nonoperative care she is here for surgical intervention. Principal Diagnosis Cervical spinal stenosis with myeloradiculopathy Discharge Data Allergies Allergy/AdvReac Type Severity Reaction Status Date / Time mold Allergy Severe SHORTNESS Verified 07/08/18 06:17 OF BREATH No Known Drug Allergies AdvReac Verified 07/08/18 06:17 Procedures Performed Operation Date: 07/08/18 07:45 Actual Procedures p C6-C7 Anterior Cervical Discectomy and Fusion(Not Applicable) - Cyrus Reyes DO Ordered Studies 07/08/18 07:45 FL cervical 2-3V Routine FL fluoroscopy <1hr Routine Hospital Course (1) Cervical stenosis of spinal canal: Patient underwent anterior cervical discectomy and fusion tolerated as well as taken to the orthopedic floor postoperative. Postop day #1 she was swallowing well. No hoarseness. Arm and leg symptoms markedly improved. MAIRA drain decreased probably. Subsequently discharged home. Discharge orders and instructions found in the chart for further review. Total Time Total Time Spent Total Time Spent (In Minutes): Not applicable Discharge Plan Discharge Items Patient Disposition: Home - Self-Care Reason For Visit: CERVICAL SPINAL STENOSIS C6-7 Discharge Diagnosis: cervical stenosis Discharge Goals: Improve disease control Activity: Per 'Additional Instructions' section Non-emergency contact: Primary Care Provider Call non-emergency contact if: you have any medication questions Follow-up/Referrals: Yasmine Camejo DO [Primary Care Provider] - Diet: Regular Addtl Provider Instructions: ACTIVITY RECOMMENDATIONS: SELF CARE INSTRUCTIONS AFTER CERVICAL FUSIONS 1. No smoking. Smoking drastically decreases the chance of a solid fusion. 2. No bending, lifting more than 5 pounds, or twisting (roll like a log when turning in bed). 3. You may shower 3 days after surgery. Thoroughly dry wound. Do not soak in the tub. 4. Cervical collar: Must be worn at all times including sleeping. You may remove the brace only to bath, eat and if you are sitting in a recliner. 5. Please walk as much as you can for exercise. Gradually increase the distance that you walk as your endurance increases. SPECIAL CARE INSTRUCTIONS: VERY IMPORTANT TO READ AND REVIEW A. Do not take any anti-inflammatory medications (i.e. Indocin, Advil, Aspirin, Naprosyn, Aleve, Motrin, etc.) as these may inhibit the chance of a solid fusion. Tylenol is okay to take. B. Your surgical incision has been closed with a cosmetic suture under the skin that will dissolve in about 6 weeks. In 14 days, you can use a pair of clean scissors and cut the suture that is left outside of the skin at the ends of your incision. C. Complications are uncommon, but please contact us if you have any signs or symptoms of: 1. wound infection (fever higher than 102.5 degrees F, redness, separation of wound, drainage, or increasing pain from the incision) 2. blood clots in legs (pain, swelling, redness and warmth in legs) 3. urinary tract infection (fever higher than 102.5 degrees, burning upon urination or increased frequency of urination) 4. nerve problems (inability to walk on your toes or heels, numbness, loss of bowel or bladder control) 5. any other symptoms that concern you. D. Please call the office at if you have any concerns or questions about your operation or recovery. MANAGING PAIN AFTER SPINAL SURGERY 1. Narcotic medication is intended for short-term use and will be provided for surgical pain. Surgical pain usually lasts for a period of 4-6 weeks. Narcotic medication includes Percocet, Vicodin, Darvocet, Tylenol #3 or Lortab. 2. Longer-term pain is more appropriately treated with non-narcotic medication such as Tylenol ES. 3. Muscle spasm is not appropriately treated with narcotics. Muscle relaxers such as Soma, Flexeril or Skelaxin can be used along with Tylenol ES. 4. Remember that we all live with some "aches and pains". This is not unusual or uncommon after an injury or as we get older. 5. We will provide appropriate medication within the normal guidelines of their prescribed use. We will also be very cautious and aware of potential abuse and extended duration of patients' medication needs. 6. Please allow 2-3 days to process refills. Prescriptions will not be mailed but must be picked up at the office. FOLLOW UP VISIT: Keep your scheduled follow-up appointment. Any questions, please call the office at . Prescriptions: New oxycodone 5 mg Tablet 5 mg PO Q4H PRN (Reason: Pain) Qty: 20 RF: 0 Continue multivitamin [Multiple Vitamins] Tablet 1 tab PO DAILY RF: 0 folic acid 1 mg Tablet 1 mg PO DAILY RF: 0 albuterol sulfate 90 mcg/actuation Hfa Aerosol Inhaler 2 - 3 puff INHALATION Q6H PRN (Reason: SOB) RF: 0 Discontinued ibuprofen 800 mg Tablet 800 mg PO BID PRN (Reason: Pain) RF: 0 Stand-Alone Forms: [facility], Opioid Pain Management Discharge Orders: Discharge Order (Routine); Ordered 07/09/18 Ordered By: Cyrus Reyes Admission Data Admit Date/Time: 07/08/18 09:06 Attending Provider: Cyrus Reyes Admit Provider: Cyrus Reyes Primary Care Provider: Yasmine Camejo Service: Surgical Services Other Interventions: Discharge Summary Assessment (RN) Last Done: 07/09/18 11:09 DC Date/Time DO NOT enter until pt leaves facility: 07/09/18 11:33
== END 2018-07-09 11:33 | disposition home or self-care (01) ==
LOC: 3E 05:48 → ASU 05:48

== ENCOUNTER 2021-07-14 10:40 | Inpatient (IN) ==
[2021-07-14] MEDS ORDERED: diphenhydrAMINE 50 MG/ML VIAL IV STA (11:11)
[2021-07-14] MEDS ORDERED: METOCLOPRAMIDE HCL INJ 5 MG/ML 2 ML VIAL IV STA (11:11)
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
[2021-07-14] MEDS ORDERED: SODIUM CHLORIDE 0.9% 1000ML 1,000 ML IV SCH (11:15)
[2021-07-14 12:24] LABS: Basophils # (auto) 0.02 K/uL (0-0.2); Basophils % (auto) 0.3 %; Eosinophils # (auto) 0.14 K/uL (0-0.5); Eosinophils % (auto) 1.8 %; Hematocrit (blood only) 40.8 % (37-47); Hemoglobin 13.7 g/dL (12.0-16.0); Immature Granulocytes # (auto) 0.01 K/uL (0.00-0.02); Immature Granulocytes % (auto) 0.1 %; Lymphocytes # (auto) 1.74 K/uL (1.2-3.4); Lymphocytes % (auto) 22.8 %; Mean Corpuscular Hemoglobin 31.2 pg (25-34); Mean Corpuscular Hgb Conc 33.6 g/dL (32-36); Mean Corpuscular Volume 92.9 fL (80-100); Mean Platelet Volume 10.5 fL (7.4-10.4); Monocytes % (auto) 5.2 %; Neutrophils # (auto) 5.31 K/uL (1.4-6.5); Neutrophils % (auto) 69.8 %; Platelet Count 254 K/uL (130-400); RDW Standard Deviation 40.9 fL (36.4-46.3); Red Blood Count 4.39 M/uL (4.2-5.4); White Blood Count 7.62 K/uL (4.8-10.8)
[2021-07-14 12:33] LABS: Partial Thromboplastin Ratio 1.1; Partial Thromboplastin Time 28.4 Seconds (21.0-31.0); Prothrombin Time 10.5 Seconds (9.0-12.0)
[2021-07-14 12:42] LABS: Albumin Globulin Ratio 1.5 (0.9-2); BUN Creatinine Ratio 12.3 (10-20); Bilirubin,Total 0.6 mg/dl (0.2-1.0); Calcium 8.9 mg/dl (8.5-10.1); Creatinine Clr Calc Pharmacy 151.6 ml/min; Est GFR (African American) 131.6 ml/min; Est GFR (Non-African American) 113.5 ml/min; Globulin 2.7 gm/dl (2.5-4.0); Potassium 3.8 mmol/L (3.5-5.1); Total Protein 6.7 gm/dl (6.0-8.3)
[2021-07-14 13:26] LABS: Pregnancy Test, Serum Negative (Negative)
[2021-07-14] MEDS ORDERED: OPTIRAY 320 125ml IV ONE ×2 (13:41→15:28)
--- NOTE | 2021-07-14 14:08 | CT Scan Report ---
CT angio head wo/w CLINICAL HISTORY: Headache. Nausea. COMPARISON STUDY: CT of the neck May 07, 2011. TECHNIQUE: Unenhanced and arterial phase imaging of the head was performed. Intravenous injection 120 cc of Optiray 320 IV was uneventful. Sagittal and coronal reconstructions were viewed as well as max imal intensity projections on an independent 3-D workstation. Automated exposure control was utilized for the study. A dose lowering technique was utilized adhering to the principles of ALARA. FINDINGS: No acute intracranial hemorrhage, midline shift or mass effect is present. Note is made of a 4.7 x 2.9 cm hypodensity within the left occipital lobe on axial image 12 of 20. There is associate d loss of villalobos-white differentiation. Ventricular system is unremarkable. Basal cisterns are patent. There are no extra-axial collections. Polypoid mucosal thickening of the maxillary sinuses is noted. The bilateral M1, M2, A1 and A2 segments are patent. No intracranial aneurysm is identified. There is diminished flow within the distal cervical portion of the right vertebral artery as well as the intr acranial portion of the right vertebral artery when compared to CT of May 07, 2011. Trace flow w ithin the intracranial portion of the right vertebral artery is noted on this exam. Multifocal irregu larity of the left posterior cerebral artery is noted, best shown on axial image 121 of 264. There is also apparent irregularity of the distal intracranial vessels although this could be technical. No d efinite central vessel occlusion is identified. IMPRESSION: 1. 4.7 x 2.9 cm hypodensity within the left occipital lobe suggestive of an acute to subacute infarct . No significant mass effect. No acute hemorrhage. MRI of the brain is recommended for confirmation. Findings discussed with Dr. Royal at time of dictation. 2. Diminished flow within the distal right vertebral artery when compared to prior CT of May 07, 2011. A more proximal dissection cannot be excluded on this exam. A CTA of the neck is recommended f or further evaluation. 3. Multifocal irregularity and apparent narrowing of the left posterior cerebral artery. In addition, apparent irregularity of multiple additional intracranial vessels. This could be technical. Other et iologies such as vasculitis are within the differential although statistically less likely. ACT 112: Negative or not required by law. Electronically signed by: Jamar Khalil M.D. 07/14/2021 2:07 PM
--- NOTE | 2021-07-14 15:50 | CT Scan Report ---
CT ANGIOGRAPHY OF THE NECK WITH CONTRAST CLINICAL HISTORY: Evaluate for dissection. COMPARISON STUDY: CT of the neck May 07, 2011. Technique: CT angiography of the carotid and vertebral arteries was obtained using Optiray and 3D rec onstruction on an independent workstation. NASCET criteria was utilized. Automated exposure control was utilized for the study. A dose lowering technique was utilized adhering to the principles of ALA RA. CT DOSE: 481.42 mGy.cm Findings: Lung apices are unremarkable. No cervical lymphadenopathy is present. Postoperative finding s consistent with C6-C7 anterior discectomy and fusion are noted. There is no acute cervical spine fr acture. The bilateral common carotid and cervical internal carotid arteries are patent. There is no s tenosis or dissection within these vessels. The left vertebral artery is dominant and patent. There i s no dissection within the left vertebral artery. Note is made of a markedly abnormal appearance of t he right vertebral artery, a new finding since CT of May 07, 2011. This begins just distal to ve ssel origin at the C7 level. The cervical and intracranial portions of the right vertebral artery are diminutive with near occlusion at the C5-C6 level. There is trace flow within the intracranial porti on of the right vertebral artery. Possible dissection flap within the right vertebral artery at the C 5-C6 level is noted. These findings suggest a right vertebral artery dissection. IMPRESSION: 1. Findings consistent with right vertebral artery dissection. Markedly abnormal appearance of the ma jority of the right vertebral artery with trace flow and possible intimal flap at the C5-C6 level. Th is is a new finding since CT of May 07, 2011. 2. Patent bilateral common carotid, cervical internal carotid and left vertebral arteries. ACT 112: Negative or not required by law. Electronically signed by: Jamar Khalil M.D. 07/14/2021 3:49 PM
[2021-07-14] MEDS ORDERED: ASPIRIN CHEW 324 MG PO STA (16:16)
[2021-07-14] MEDS ORDERED: CLOPIDOGREL BISULFATE 300 MG TAB PO STA (16:16)
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
[2021-07-14] MEDS ORDERED: ACETAMINOPHEN 325 MG TAB PO STA (18:59)
[2021-07-14] MEDS ORDERED: ALBUTEROL HFA 8 GM INHALER INH PRN (20:41)
[2021-07-14] MEDS ORDERED: PHARMACIST DISCHARGE MED REC CONSULT PRN (20:41)
[2021-07-14] MEDS ORDERED: ACETAMINOPHEN 325 MG TAB PO PRN (20:41)
[2021-07-15] MEDS ORDERED: PERFLUTREN LIPID MICROSPHERE (DEFINITY) IV ONE (07:02)
[2021-07-15] MEDS ORDERED: DULoxetine HCL 20 MG CAP PO SCH (07:30)
[2021-07-15 08:06] LABS: Basophils # (auto) 0.01 K/uL (0-0.2); Basophils % (auto) 0.1 %; Eosinophils # (auto) 0.22 K/uL (0-0.5); Eosinophils % (auto) 3.2 %; Hematocrit (blood only) 40.4 % (37-47); Hemoglobin 13.7 g/dL (12.0-16.0); Immature Granulocytes # (auto) 0.01 K/uL (0.00-0.02); Immature Granulocytes % (auto) 0.1 %; Lymphocytes # (auto) 1.64 K/uL (1.2-3.4); Lymphocytes % (auto) 23.7 %; Mean Corpuscular Hemoglobin 31.4 pg (25-34); Mean Corpuscular Hgb Conc 33.9 g/dL (32-36); Mean Corpuscular Volume 92.4 fL (80-100); Mean Platelet Volume 10.5 fL (7.4-10.4); Monocytes # (auto) 0.31 K/uL (0.11-0.59); Monocytes % (auto) 4.5 %; Neutrophils # (auto) 4.72 K/uL (1.4-6.5); Neutrophils % (auto) 68.4 %; Platelet Count 259 K/uL (130-400); RDW Standard Deviation 40.6 fL (36.4-46.3); Red Blood Count 4.37 M/uL (4.2-5.4); White Blood Count 6.91 K/uL (4.8-10.8)
[2021-07-15 08:20] LABS: Prothrombin Time 10.5 Seconds (9.0-12.0)
[2021-07-15 08:28] LABS: BUN Creatinine Ratio 15.8 (10-20); Calcium 8.7 mg/dl (8.5-10.1); Chol HDL Ratio 4.8 (0-5); Creatinine Clr Calc Pharmacy 152.2 ml/min; Est GFR (African American) 131.6 ml/min; Est GFR (Non-African American) 113.5 ml/min; Magnesium 1.8 mg/dl (1.7-2.4); Potassium 3.7 mmol/L (3.5-5.1)
--- NOTE | 2021-07-15 08:42 | Magnetic Resonance Report ---
MR brain wo con CLINICAL HISTORY: Severe headache for 2 days. MRI recommended after CT for suspicion of a left occip ital infarct. COMPARISON STUDY: CTA brain from 07/14/2021 TECHNIQUE: Multiplanar multisequence images of the Brain were performed without IV contrast. Diffusi on weighted imaging and ADC mapping was also performed. FINDINGS: Extra-axial space: There is no evidence for a subdural hematoma, There are no extra-axial fluid adithya ections. Ventricles and cisterns: The ventricles are normal in size and configuration. There is no evidence f or midline shift or mass effect. Parenchyma: There is evidence for an acute to subacute infarct within the left posterior parietal lob e. Abnormal diffusion weighted imaging and ADC mapping is present. A smaller acute to subacute infar ct is also seen within the left cerebellar hemisphere. The sulci and gyri appear normal without effac ement. The midline structures are unremarkable. The remaining posterior fossa structures appear kaiden l. There is no evidence for mass lesion. Osseous structures: The paranasal sinuses are well aerated. The mastoid air cells are well aerated. Soft tissues: No focal soft tissue abnormalities are identified. IMPRESSION: 1. MR confirms the presence of an acute to subacute infarct involving the left posterior parietal lob e. 2. A second smaller acute to subacute infarct is seen involving the left cerebellar hemisphere. ACT 112: Negative or not required by law. Electronically signed by: En Coburn M.D. 07/15/2021 8:41 AM
--- NOTE | 2021-07-15 08:48 | XCELERA ---
[id number]
[2021-07-15] MEDS ORDERED: ASPIRIN 81 MG ECTAB PO SCH (09:00)
[2021-07-15] MEDS ORDERED: CLOPIDOGREL BISULFATE 75 MG TAB PO SCH (09:00)
[2021-07-15] MEDS ORDERED: PANTOprazole 40 MG TAB PO SCH (09:00)
[2021-07-15] MEDS ORDERED: ATORVASTATIN 40 MG TAB PO SCH (09:45)
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
[2021-07-15 10:38] LABS: Estimated Average Glucose 111 mg/dl; Hemoglobin A1C 5.5 % (4.5-5.6)
[2021-07-15] MEDS ORDERED: ONDANSETRON INJ 2 MG/ML 2 ML VIAL IV PRN (14:06)
--- NOTE | 2021-07-15 15:37 | Electrocardiogram Report ---
Test Reason : Blood Pressure : / mmHG Vent. Rate : 050 BPM Atrial Rate : 050 BPM P-R Int : 162 ms QRS Dur : 078 ms QT Int : 490 ms P-R-T Axes : 034 027 049 degrees QTc Int : 446 ms Sinus bradycardia Otherwise normal ECG When compared with ECG of 24-FEB-2021 01:50, Vent. rate has decreased BY 30 BPM Confirmed by Gagan Dwyer ([id number]) on 07/15/2021 3:37:44 PM Referred By: REFERRED SELF Confirmed By:Gagan Dwyer
[2021-07-15] MEDS ORDERED: STROKE PATIENT DISCHARGE STA (16:51)
--- NOTE | 2021-07-15 17:31 | Pharmacy Report ---
Pharmacist Stroke Counseling - Date of Service July 15, 2021 - Scope: Pharmacy has been consulted to provide medication discharge counseling for this patient admitted with ischemic stroke as per the Pharmacist Discharge Counseling for Stroke Patients Protocol. - Medications on Discharge: Home Medications Medication Instructions Recorded Confirmed albuterol sulfate 90 mcg/actuation 2 puff INHALATION QID PRN 02/24/21 07/14/21 aerosol inhaler duloxetine 20 mg capsule,delayed 40 mg PO QDB 02/24/21 07/14/21 release New Rx's Medication Instructions Recorded acetaminophen 325 mg tablet 650 mg PO Q4H PRN #60 tab 07/15/21 atorvastatin 40 mg tablet 40 mg PO QPM #30 tab 07/15/21 clopidogrel 75 mg tablet 75 mg PO QAM #30 tab 07/15/21 - Action: The above medications, specifically ones for stroke treatment/prophylaxis, have been reviewed in detail with the patient and/or patient international account representative(s) prior to discharge. This includes indication, common adverse reactions, drug interactions, and medication administration. Medication counseling has been employed using the teach-back method to ensure understanding. - Outcome: The patient and/or patient international account representative(s) have demonstrated understanding of the medications. Additional comments: * Spoke with patient on phone prior to discharge to review medications. Reviewed indications, dosing, and potential adverse effects. * Previously was taking ibuprofen prn headache/pain. Explained need to avoid NSAID's due to incr' risk for bleeding/bruising with Plavix. Also, NSAID's can incr' BP, which also incr' stroke risk. She has never tried acetaminophen. Advised max daily dose of 3000mg/day. * She is aware need to quit smoking. Has never tried nicotine replacement therapy before. Recommend to try nicotine 21mg patch and use nicotine lozenges/gum prn. She understands smoking incr' stroke risk * Aware to monitor for s/sx statin myalgia Thank you for allowing pharmacy to be involved in the care of this patient. Please call [phone] with any additional questions
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
== END 2021-07-15 17:57 | disposition home or self-care (01) | DRG 64 ==
LOC: ED 10:40 → EDINP 17:45 → 2N 20:40
DX: R29.700 NIHSS score 0; Z79.899 Other long term (current) drug therapy; R53.1 Weakness; Z88.5 Allergy status to narcotic agent; Z98.1 Arthrodesis status; J45.909 Unspecified asthma, uncomplicated; R47.9 Unspecified speech disturbances; E66.9 Obesity, unspecified; I63.9 Cerebral infarction, unspecified; Z68.36 Body mass index [BMI] 36.0-36.9, adult; I77.74 Dissection of vertebral artery; Z87.891 Personal history of nicotine dependence